=== PATIENT | female | born 1995 | race African-American/Black ===

== ENCOUNTER 2017-01-07 11:09 | Emergency (ER) | payer MEDICAID ==
[~2017-01-07] VITALS: Ht 167.6 cm; Wt 91.0 kg
[~2017-01-07 11:09] MED LIST: BIRTH CONTROL
[2017-01-07 13:22] VITALS: BP 115/69
[2017-01-07 13:30] LABS: BASOPHILS % 0.5 % (0.0-2.0); DIFFERENTIAL COMMENT 0; EOSINOPHILS % 1.4 % (0.0-5.0); HEMATOCRIT. 33.2 % (36.0-48.0); LYMPHOCYTES % 20.4 % (20.0-50.0); MEAN CORPUSCULAR HEMOGLOBIN 26.3 pg (28.0-32.0); MEAN CORPUSCULAR VOLUME 79.8 fL (81.0-99.0); MEAN PLATELET VOLUME 8.2 fl (7.4-10.4); MONOCYTES % 4.3 % (2.0-8.0); NEUTROPHILS % 73.4 % (40.0-76.0); PLATELET 238 x1000/uL (130-400); RED BLOOD CELL COUNT 4.16 mill/uL (4.2-5.4); RED CELL DISTRIBUTION WIDTH 15.2 % (11.6-14.6); WHITE BLOOD COUNT 7.9 x1000/uL (4.5-11.0)
== END 2017-01-07 14:20 | disposition home or self-care (01) ==
LOC: ER 12:53
DX: O20.0 Threatened abortion (principal); Z3A.13 13 weeks gestation of pregnancy
CPT/HCPCS: 36415; 76801; 76817; 81025; 84702; 85025; 86850; 86900; 86901; 99285; Z7610

== ENCOUNTER 2017-05-27 13:32 | Observation (INO) | payer MEDICAID ==
[~2017-05-27] VITALS: Ht 157.5 cm; Wt 95.3 kg
[2017-05-27] MEDS ORDERED: PREN-88 PO (14:47)
[2017-05-27] MEDS ORDERED: FERR-63 PO (14:48)
== END 2017-05-27 14:52 | disposition home or self-care (01) ==
LOC: L&D 13:32
PROVIDERS: ADMIT Obstetrics & Gynecology; ATTEND Obstetrics & Gynecology
DX: O26.893 Other specified pregnancy related conditions, third trimester (principal); M79.89 Other specified soft tissue disorders; Z3A.33 33 weeks gestation of pregnancy
CPT/HCPCS: 99281; G0378